=== PATIENT | female | born 1970 | race Caucasian/White ===

== ENCOUNTER 2017-09-05 15:37 | Emergency (ER) | payer MEDICAID ==
[~2017-09-05] VITALS: Ht 175.3 cm; Wt 114.0 kg
[~2017-09-05 15:37] MED LIST: ALBU18HF2 INH; FLUT16SP16; IBUP-1986 PO; INSU100V9; LEVO112T5; LISI10TA4; LORA10TA7; LURA40TA3; METF10002; SIMV40TA4
[2017-09-05 15:40] VITALS: BP 131/83
[2017-09-05] MEDS ORDERED: CEPH500C5 PO (15:54)
[2017-09-05] MEDS ORDERED: SULF1TAB49 PO (15:54)
[2017-09-05] MEDS ORDERED: HYDR-565 PO (15:54)
== END 2017-09-05 16:13 | disposition home or self-care (01) ==
LOC: ER 15:38
DX: L03.115 Cellulitis of right lower limb (principal); E11.9 Type 2 diabetes mellitus without complications; J45.909 Unspecified asthma, uncomplicated; I10 Essential (primary) hypertension; Z88.5 Allergy status to narcotic agent; Z79.4 Long term (current) use of insulin; Z86.19 Personal history of other infectious and parasitic diseases
CPT/HCPCS: 99283

== ENCOUNTER 2017-09-08 09:56 | Inpatient (IN) | payer MEDICAID ==
[~2017-09-08] VITALS: Ht 175.3 cm; Wt 111.9 kg
[~2017-09-08 09:56] MED LIST changes: +CEPH500C5 PO; +HYDR-565 PO; +SULF1TAB49 PO
[2017-09-08] MEDS ORDERED: normal saline 1000ML IV soln IV ONE (10:40)
[2017-09-08 11:55] LABS: BASOPHILS % (AUTO) 0.2 % (0-1); EOSINOPHILS # (AUTO) 0.1 X10'3 (0-0.9); EOSINOPHILS % (AUTO) 2.1 % (0-6); HEMATOCRIT 39.3 % (35.0-45.0); HEMOGLOBIN 13.6 g/dl (12.0-16.0); LYMPHOCYTES # (AUTO) 1.3 X10'3 (1.1-4.8); LYMPHOCYTES % (AUTO) 19.8 % (21-51); MEAN CORPUSCULAR HEMOGLOBIN 29.6 PG (27.0-31.0); MEAN CORPUSCULAR HGB CONC 34.7 % (33.0-36.5); MEAN CORPUSCULAR VOLUME 85.2 FL (78-98); MEAN PLATELET VOLUME 7.5 FL (7.4-10.4); MONOCYTES # (AUTO) 0.3 X10'3 (0-0.9); MONOCYTES % (AUTO) 5.2 % (2-12); NEUTROPHILS # (AUTO) 4.9 X10'3 (1.8-7.7); NEUTROPHILS % (AUTO) 72.7 % (42-75); PLATELET COUNT 156 X10'3 (140-440); RED BLOOD COUNT 4.61 X10'6 (4.20-5.60); RED CELL DISTRIBUTION WIDTH 15.4 % (11.5-14.5); WHITE BLOOD COUNT 6.8 X10'3 (4.5-11.0)
[2017-09-08 12:00] LABS: URINE HCG NEGATIVE (NEG)
[2017-09-08 12:05] LABS: INR 0.9 INR; PARTIAL THROMBOPLASTIN TIME 26 SECONDS (22-32); PROTHROMBIN TIME 9.5 SECONDS (9.0-12.0)
[2017-09-08] MEDS ORDERED: CefTRIAXone 2gm/NS 100ml IVPB 100 ML IV ONE (12:10)
[2017-09-08 12:11] LABS: ALANINE AMINOTRANSFERASE 25 U/L (12-78); ALBUMIN 4.1 G/DL (3.4-5.0); ALKALINE PHOSPHATASE 70 IU/L (46-116); ANION GAP 11 (8-16); ASPARTATE AMINO TRANSFERASE 11 U/L (10-37); BILIRUBIN,TOTAL 0.2 MG/DL (0.1-1.0); BLOOD UREA NITROGEN 12 MG/DL (7-18); CALCIUM 9.6 MG/DL (8.5-10.1); CHLORIDE 100 MMOL/L (99-107); GLUCOSE 146 MG/DL (70-104); POTASSIUM 4.2 MMOL/L (3.5-5.1); SODIUM 139 MMOL/L (135-145); TOTAL PROTEIN 8.3 G/DL (6.4-8.2); eGFR 78 ML/MIN
[2017-09-08 12:14] LABS: URINE AMPHETAMINE SCREEN NEGATIVE (Neg); URINE BARBITUATE SCREEN NEGATIVE (Neg); URINE BENZODIAZEPINES SCREEN NEGATIVE (Neg); URINE CANNABINOID SCREEN NEGATIVE (Neg); URINE COCAINE SCREEN NEGATIVE (Neg); URINE METHADONE SCREEN NEGATIVE (Neg); URINE OPIATE SCREEN POSITIVE (Neg); URINE PHENCYCLIDINE SCREEN NEGATIVE (Neg)
[2017-09-08] MEDS ORDERED: normal saline 1000ML IV soln IVB ONE (12:20)
[2017-09-08] MEDS ORDERED: HYDROcodone/acetaminophen 10/325mg tab PO ONE (12:50)
[2017-09-08] MEDS ORDERED: LISI10TA4 PO (13:02)
[2017-09-08] MEDS ORDERED: ERGO400C PO (13:02)
[2017-09-08] MEDS ORDERED: LORA-660 PO (13:02)
[2017-09-08] MEDS ORDERED: LEVO112T5 PO (13:02)
[2017-09-08] MEDS ORDERED: SIMV40TA4 PO (13:02)
[2017-09-08] MEDS ORDERED: GABA-532 PO (13:02)
[2017-09-08] MEDS ORDERED: METF500T PO (13:02)
[2017-09-08] MEDS ORDERED: LURA80TA3 PO (13:03)
[2017-09-08] MEDS ORDERED: TRAZ-146 PO (13:03)
[2017-09-08] MEDS ORDERED: dextrose 50%-water 50ml dispensing syringe IV PRN ×2 (13:50)
[2017-09-08] MEDS ORDERED: ondansetron/PF 4mg/2ml inj IV PRN (13:50)
[2017-09-08] MEDS ORDERED: potassium Cl 20 mEq SR tablet PO PRN ×2 (13:50)
[2017-09-08] MEDS ORDERED: MESSAGE TO PHARMACY PO ONE (13:50)
[2017-09-08] MEDS ORDERED: magnesium 4gm in 100ml NS 100 ML IV PRN (13:50)
[2017-09-08] MEDS ORDERED: glucagon, human recombinant 1mg kit SUBCUT PRN (13:50)
[2017-09-08] MEDS ORDERED: diphenhydrAMINE 50 mg/ml inj IV PRN (13:50)
[2017-09-08] MEDS ORDERED: magnesium Cl slow-release 64mg tablet PO PRN (13:50)
[2017-09-08] MEDS ORDERED: HYDROcodone/acetaminophen 5mg/325mg tablet PO PRN (13:50)
[2017-09-08] MEDS ORDERED: magnesium hydroxide 30ml (MOM) UD suspension PO PRN (13:50)
[2017-09-08] MEDS ORDERED: dextrose ORAL solution 15 GM/59 ML bottle PO PRN ×2 (13:50)
[2017-09-08] MEDS: K and/or MAG REPLACEMENT MC SCH (13:50)
[2017-09-08] MEDS ORDERED: insulin Lispro (HumaLOG) vial - multi-dose SQ SCH (13:50)
[2017-09-08] MEDS ORDERED: morphine 2 MG/ML inj. syringe IV PRN ×2 (13:50)
[2017-09-08] MEDS ORDERED: mag hydrox/Alum hydrox/simeth 30ml oral suspension PO PRN (13:50)
[2017-09-08] MEDS ORDERED: potassium Cl 40MEQ/NS 500ml 500 ML IV PRN ×2 (13:50)
[2017-09-08] MEDS ORDERED: acetaminophen 325mg tablet PO PRN ×2 (13:50)
[2017-09-08] MEDS ORDERED: magnesium 2GM in 50ml NS 50 ML IV PRN (13:50)
[2017-09-08 14:03] LABS: CLARITY,URINE CLEAR (Clear); COLOR,URINE YELLOW (Yellow); GLUCOSE, URINE NEGATIVE (Neg); KETONES,URINE NEGATIVE (Neg); LEUKOCYTE ESTERASE ,URINE NEGATIVE (Neg); NITRITES, URINE NEGATIVE (Neg); OCCULT BLOOD,URINE NEGATIVE (Neg); PROTEIN,URINE NEGATIVE (Neg); UROBILINOGEN,URINE 0.2 E.U/dL (0.2-1.0)
[2017-09-08 14:21] LABS: HEMOGLOBIN A1C 5.4 % (4.5-6.2)
[2017-09-08 14:22] LABS: UA COLLECTION TYPE CLN CATCH MIDSTREAM
[2017-09-08 14:59] VITALS: BP 117/69
[2017-09-08] MEDS: nicotine 21mg patch - 24 hr TD SCH (15:10)
[2017-09-08] MEDS: normal saline 1000ml 1,000 ML IV SCH (15:41)
[2017-09-08] MEDS: piperacillin/tazo 3.375gm/50ml 50 ML IV SCH ×2 (15:55→20:43)
[2017-09-08] MEDS: HYDROcodone/acetaminophen 10/325mg tab PO PRN (17:59)
[2017-09-08 20:00] VITALS: BP 119/62
[2017-09-08] MEDS: gabapentin 300mg capsule PO SCH (20:43)
[2017-09-08] MEDS ORDERED: insulin glargine (Lantus) pen - multi-dose SQ SCH (21:00)
[2017-09-08] MEDS ORDERED: traZODone 50mg tablet PO SCH (21:00)
[2017-09-08] MEDS ORDERED: lurasidone 20mg tablet PO SCH (21:00)
[2017-09-08] MEDS ORDERED: lurasidone 60mg tablet PO SCH (21:00)
[2017-09-09] VITALS: BP 96/59
[2017-09-09] MEDS: piperacillin/tazo 3.375gm/50ml 50 ML IV SCH ×3 (02:02→14:00)
[2017-09-09] MEDS: normal saline 1000ml 1,000 ML IV SCH ×2 (02:02→09:47)
[2017-09-09] MEDS: HYDROcodone/acetaminophen 10/325mg tab PO PRN ×3 (04:18→13:09)
[2017-09-09 05:47] LABS: BASOPHILS % (AUTO) 0.4 % (0-1); EOSINOPHILS # (AUTO) 0.1 X10'3 (0-0.9); EOSINOPHILS % (AUTO) 2.1 % (0-6); HEMOGLOBIN 12.1 g/dl (12.0-16.0); LYMPHOCYTES # (AUTO) 1.5 X10'3 (1.1-4.8); MEAN CORPUSCULAR HEMOGLOBIN 29.4 PG (27.0-31.0); MEAN CORPUSCULAR HGB CONC 34.6 % (33.0-36.5); MEAN CORPUSCULAR VOLUME 85.1 FL (78-98); MEAN PLATELET VOLUME 7.3 FL (7.4-10.4); MONOCYTES # (AUTO) 0.5 X10'3 (0-0.9); MONOCYTES % (AUTO) 9.3 % (2-12); NEUTROPHILS % (AUTO) 58.2 % (42-75); PLATELET COUNT 119 X10'3 (140-440); RED BLOOD COUNT 4.12 X10'6 (4.20-5.60); RED CELL DISTRIBUTION WIDTH 15.3 % (11.5-14.5); WHITE BLOOD COUNT 5.1 X10'3 (4.5-11.0)
[2017-09-09 06:22] LABS: ALANINE AMINOTRANSFERASE 25 U/L (12-78); ALBUMIN/GLOBULIN RATIO 0.9 (1.1-1.5); ALKALINE PHOSPHATASE 49 IU/L (46-116); ANION GAP 7 (8-16); ASPARTATE AMINO TRANSFERASE 16 U/L (10-37); BILIRUBIN,TOTAL 0.2 MG/DL (0.1-1.0); BLOOD UREA NITROGEN 11 MG/DL (7-18); BUN/CREATININE RATIO 15.7 (6.6-38.0); CALCIUM 8.3 MG/DL (8.5-10.1); CHLORIDE 109 MMOL/L (99-107); GLUCOSE 110 MG/DL (70-104); MAGNESIUM 1.7 MG/DL (1.5-2.4); POTASSIUM 4.1 MMOL/L (3.5-5.1); SODIUM 142 MMOL/L (135-145); TOTAL CARBON DIOXIDE 25.8 MMOL/L (24-32); TOTAL PROTEIN 6.4 G/DL (6.4-8.2); eGFR 90 ML/MIN
[2017-09-09 07:16] VITALS: BP 102/57
[2017-09-09] MEDS: gabapentin 300mg capsule PO SCH ×2 (07:46→13:05)
[2017-09-09] MEDS: nicotine 21mg patch - 24 hr TD SCH (07:47)
[2017-09-09] MEDS ORDERED: enoxaparin 40mg/0.4ml syringe SUBCUT SCH (08:00)
[2017-09-09] MEDS ORDERED: levoTHYROXINE 112mcg tablet PO SCH (08:00)
[2017-09-09] MEDS ORDERED: lisinopril 10 MG tablet PO SCH (08:00)
[2017-09-09] MEDS ORDERED: cholecalciferol (vitamin D) 400 unit tablet PO SCH (08:00)
[2017-09-09] MEDS ORDERED: atorvastatin 20mg tablet PO SCH (08:00)
[2017-09-09] MEDS ORDERED: loratadine 10mg tablet PO SCH (08:00)
[2017-09-09] MEDS: K and/or MAG REPLACEMENT MC SCH (08:00)
[2017-09-09 11:57] VITALS: BP 105/56
[2017-09-09] MEDS ORDERED: VANCOMYCIN LEVEL IV ONE (12:30)
[2017-09-09] MEDS ORDERED: SULF1TAB49 PO (14:08)
[2017-09-09] MEDS ORDERED: lactobacillus rhamnosus 10,000 MMU CELLS/CAPSULE PO SCH (17:30)
[2017-09-10] MEDS ORDERED: VANCOMYCIN LEVEL IV ONE (12:30)
== END 2017-09-09 16:04 | disposition home or self-care (01) | DRG 383 ==
LOC: ER 09:56 → ED HOLD 13:47 → MED 3N 14:51
PROVIDERS: ADMIT Family Medicine; ATTEND Family Medicine
DX: L03.115 Cellulitis of right lower limb (principal); E87.2 Acidosis; E03.9 Hypothyroidism, unspecified; E11.9 Type 2 diabetes mellitus without complications; E66.9 Obesity, unspecified; E78.5 Hyperlipidemia, unspecified; I10 Essential (primary) hypertension; L03.116 Cellulitis of left lower limb; F17.200 Nicotine dependence, unspecified, uncomplicated; B19.20 Unspecified viral hepatitis C without hepatic coma; F31.9 Bipolar disorder, unspecified; F15.90 Other stimulant use, unspecified, uncomplicated; M79.89 Other specified soft tissue disorders; R60.0 Localized edema; Z68.36 Body mass index [BMI] 36.0-36.9, adult; Z88.5 Allergy status to narcotic agent; Z90.49 Acquired absence of other specified parts of digestive tract
CPT/HCPCS: 36415; 73590; 80053; 80202; 80305; 81003; 81025; 82948; 83036; 83605; 83735; 84100; 84443; 85025; 85610; 85730; 87040; 87070; 93005; 93971; 96365; 96368; 99285; J0696; J1650; J1815; J2543; J3370; J7030

== ENCOUNTER 2019-09-16 08:56 | Emergency (ER) | payer MEDICAID ==
[~2019-09-16] VITALS: Ht 175.3 cm; Wt 110.0 kg
[~2019-09-16 08:56] MED LIST changes: -ALBU18HF2 INH; -CEPH500C5 PO; +ERGO400C PO; -FLUT16SP16; +GABA-532 PO; +HYDR-4383 PO; -HYDR-565 PO; -IBUP-1986 PO; -INSU100V9; -LEVO112T5; +LEVO112T5 PO; -LISI10TA4; +LISI10TA4 PO; +LORA-660 PO; -LORA10TA7; -LURA40TA3; +LURA80TA3 PO; -METF10002; +METF500T PO; +SIMV-45 PO; -SIMV40TA4; -SULF1TAB49 PO; +TRAZ-256 PO
[2019-09-16] MEDS ORDERED: METH-360 PO (09:57)
[2019-09-16] MEDS ORDERED: NAPR-56 PO (09:57)
[2019-09-16] MEDS: orphenadrine citrate 60mg/2ml inj. IM ONE ×2 (10:19→10:28)
[2019-09-16] MEDS: ketorolac tromethamine 15mg/ml inj. IM ONE ×2 (10:19→10:28)
[2019-09-16] MEDS ORDERED: orphenadrine citrate 60mg/2ml inj. IM ONE (10:30)
[2019-09-16] MEDS ORDERED: ketorolac tromethamine 15mg/ml inj. IM ONE (10:30)
[2019-09-16 10:34] VITALS: BP 156/78
== END 2019-09-16 11:31 | disposition home or self-care (01) ==
LOC: ER 08:57
DX: M54.41 Lumbago with sciatica, right side (principal); I10 Essential (primary) hypertension; J45.909 Unspecified asthma, uncomplicated; E11.9 Type 2 diabetes mellitus without complications; F15.90 Other stimulant use, unspecified, uncomplicated; Z86.19 Personal history of other infectious and parasitic diseases; Z90.49 Acquired absence of other specified parts of digestive tract; Z98.890 Other specified postprocedural states; Z88.5 Allergy status to narcotic agent; Z88.6 Allergy status to analgesic agent; Z79.84 Long term (current) use of oral hypoglycemic drugs; Z79.899 Other long term (current) drug therapy
CPT/HCPCS: 96372; 99283; J1885; J2360

== ENCOUNTER 2019-10-19 23:02 | Emergency (ER) | payer MEDICAID ==
[~2019-10-19] VITALS: Ht 167.6 cm; Wt 115.5 kg
[~2019-10-19 23:02] MED LIST changes: +METH-360 PO
[2019-10-19 23:05] VITALS: BP 143/80
[2019-10-20] MEDS ORDERED: AZIT-63 PO (00:06)
[2019-10-20] MEDS ORDERED: azithromycin 250mg tablet PO ONE (00:10)
--- NOTE | 2019-10-20 00:18 | NUR ---
PT EN ROUTE FOR CXR.
[2019-10-20] MEDS ORDERED: ALBU8.5H8 INH (00:19)
== END 2019-10-20 00:39 | disposition home or self-care (01) ==
LOC: ER 23:03
DX: J20.9 Acute bronchitis, unspecified (principal); I10 Essential (primary) hypertension; J45.909 Unspecified asthma, uncomplicated; E11.9 Type 2 diabetes mellitus without complications; F15.90 Other stimulant use, unspecified, uncomplicated; F17.200 Nicotine dependence, unspecified, uncomplicated; Z86.19 Personal history of other infectious and parasitic diseases; Z90.49 Acquired absence of other specified parts of digestive tract; Z98.890 Other specified postprocedural states; Z88.5 Allergy status to narcotic agent; Z79.2 Long term (current) use of antibiotics; Z79.899 Other long term (current) drug therapy
CPT/HCPCS: 71045; 99283

== ENCOUNTER 2019-10-22 19:56 | Emergency (ER) | payer MEDICAID ==
[~2019-10-22] VITALS: Ht 176.5 cm; Wt 114.5 kg
[~2019-10-22 19:56] MED LIST changes: +ALBU8.5H8 INH; +AZIT-63 PO
[2019-10-22 20:16] VITALS: BP 104/62
[2019-10-22] MEDS ORDERED: naphazoline/pheniramine eye 1 DROP BOTTLE EACHEYE PRN (21:40)
[2019-10-22] MEDS ORDERED: ciprofloxacin 0.3% 2.5ml ophthalmic solution EACHEYE SCH (21:40)
== END 2019-10-22 22:21 | disposition home or self-care (01) ==
LOC: ER 19:56
DX: H10.9 Unspecified conjunctivitis (principal); R05 Cough; I10 Essential (primary) hypertension; J45.909 Unspecified asthma, uncomplicated; E11.9 Type 2 diabetes mellitus without complications; F17.210 Nicotine dependence, cigarettes, uncomplicated; F15.90 Other stimulant use, unspecified, uncomplicated; Z86.19 Personal history of other infectious and parasitic diseases; Z88.5 Allergy status to narcotic agent; Z88.6 Allergy status to analgesic agent; Z79.84 Long term (current) use of oral hypoglycemic drugs; Z79.899 Other long term (current) drug therapy
CPT/HCPCS: 99283

== ENCOUNTER 2020-05-05 22:23 | Emergency (ER) | payer MEDICAID ==
[~2020-05-05] VITALS: Ht 177.8 cm; Wt 116.0 kg
[~2020-05-05 22:23] MED LIST changes: -AZIT-63 PO
[2020-05-05 22:29] VITALS: BP 138/66
[2020-05-05] MEDS ORDERED: LIDOcaine 1% W/epiNEPHrine 1:200,000 10ml vial IJ ONE (23:15)
[2020-05-06] MEDS ORDERED: SULF1TAB49 PO (00:18)
[2020-05-06] MEDS ORDERED: CEPH500C5 PO (00:18)
[2020-05-06] MEDS ORDERED: sulfamethoxazole/trimethoprim DS (800/160mg) tablet PO ONE (00:20)
[2020-05-06] MEDS ORDERED: cephalexin 250mg capsule PO ONE (00:20)
== END 2020-05-06 00:31 | disposition home or self-care (01) ==
LOC: ER 22:24
DX: L02.512 Cutaneous abscess of left hand (principal); M79.632 Pain in left forearm; M79.89 Other specified soft tissue disorders; I10 Essential (primary) hypertension; J45.909 Unspecified asthma, uncomplicated; E11.9 Type 2 diabetes mellitus without complications; F15.90 Other stimulant use, unspecified, uncomplicated; Z86.19 Personal history of other infectious and parasitic diseases; Z87.440 Personal history of urinary (tract) infections; Z90.89 Acquired absence of other organs; Z98.890 Other specified postprocedural states; Z88.5 Allergy status to narcotic agent; Z88.6 Allergy status to analgesic agent; Z79.899 Other long term (current) drug therapy
CPT/HCPCS: 10060; 99283

== ENCOUNTER 2020-06-15 16:25 | Emergency (ER) | payer MEDICAID ==
[~2020-06-15] VITALS: Ht 175.3 cm; Wt 115.3 kg
[2020-06-15] MEDS ORDERED: sulfamethoxazole/trimethoprim DS (800/160mg) tablet PO ONE (17:40)
[2020-06-15] MEDS ORDERED: cephalexin 250mg capsule PO ONE (17:40)
--- NOTE | 2020-06-15 18:27 | NUR ---
Patient with SEUN Pedro who is doing an ultrasound of her arm.
[2020-06-15] MEDS ORDERED: bacitracin 15gm ointment TP ONE (18:35)
[2020-06-15] MEDS ORDERED: CEPH500C5 PO (18:43)
[2020-06-15] MEDS ORDERED: SULF1TAB49 PO (18:43)
[2020-06-15 19:07] VITALS: BP 125/81
== END 2020-06-15 19:31 | disposition home or self-care (01) ==
LOC: ER 16:25
DX: L02.414 Cutaneous abscess of left upper limb (principal); L02.413 Cutaneous abscess of right upper limb; L03.114 Cellulitis of left upper limb; L03.113 Cellulitis of right upper limb; M79.602 Pain in left arm; M79.601 Pain in right arm; I10 Essential (primary) hypertension; J45.909 Unspecified asthma, uncomplicated; E11.9 Type 2 diabetes mellitus without complications; F15.90 Other stimulant use, unspecified, uncomplicated; Z86.19 Personal history of other infectious and parasitic diseases; Z87.440 Personal history of urinary (tract) infections; Z90.89 Acquired absence of other organs; Z98.890 Other specified postprocedural states; Z88.5 Allergy status to narcotic agent; Z88.6 Allergy status to analgesic agent; Z79.2 Long term (current) use of antibiotics; Z79.899 Other long term (current) drug therapy
CPT/HCPCS: 76882; 99284

== ENCOUNTER → 2020-06-19 | Emergency (ER) | payer MEDICAID ==
[~2020-06-19] VITALS: Ht 175.3 cm; Wt 113.6 kg
[~2020-06-19] MED LIST changes: +CEPH500C5 PO; +LIDOcaine 1% W/epiNEPHrine 1:100,000 20ml vial ONE; +LIDOcaine 1% W/epiNEPHrine 1:200,000 10ml vial IJ ONE; +LIDOcaine 1% w/epiNEPHrine 1:200,000 30ml vial IJ ONE; +SULF1TAB49 PO; +TETanus/Pertussis (Acell)/Diphther VAC/PF (Tdap-Adult) 0.5ml syringe IMVAC ONE
[2020-06-19 11:07] VITALS: BP 136/79
== END | disposition home or self-care (01) ==
LOC: ER 11:03
DX: L02.413 Cutaneous abscess of right upper limb (principal); I10 Essential (primary) hypertension; J45.909 Unspecified asthma, uncomplicated; E11.9 Type 2 diabetes mellitus without complications; F17.200 Nicotine dependence, unspecified, uncomplicated; F15.90 Other stimulant use, unspecified, uncomplicated; Z86.19 Personal history of other infectious and parasitic diseases; Z87.440 Personal history of urinary (tract) infections; Z98.890 Other specified postprocedural states; Z90.89 Acquired absence of other organs; Z88.5 Allergy status to narcotic agent; Z88.6 Allergy status to analgesic agent; Z79.2 Long term (current) use of antibiotics; Z79.899 Other long term (current) drug therapy
CPT/HCPCS: 10060; 10061; 90471; 90715; 99284

== ENCOUNTER 2020-11-20 17:23 | Emergency (ER) | payer MEDICAID ==
[~2020-11-20] VITALS: Ht 175.3 cm; Wt 113.6 kg
[~2020-11-20 17:23] MED LIST changes: -CEPH500C5 PO; -LIDOcaine 1% W/epiNEPHrine 1:100,000 20ml vial ONE; -LIDOcaine 1% W/epiNEPHrine 1:200,000 10ml vial IJ ONE; -LIDOcaine 1% w/epiNEPHrine 1:200,000 30ml vial IJ ONE; +LISI10TA27 PO; -LISI10TA4 PO; +LORA-657 PO; -LORA-660 PO; -SULF1TAB49 PO; -TETanus/Pertussis (Acell)/Diphther VAC/PF (Tdap-Adult) 0.5ml syringe IMVAC ONE
[2020-11-20 17:33] VITALS: BP 116/83
[2020-11-20] MEDS ORDERED: SULF1TAB49 PO (20:54)
[2020-11-20] MEDS ORDERED: POLOS EACHEYE (20:54)
[2020-11-20] MEDS ORDERED: CEFD300C3 PO (20:54)
== END 2020-11-20 21:10 | disposition home or self-care (01) ==
LOC: ER 17:24
DX: H00.034 Abscess of left upper eyelid (principal); I10 Essential (primary) hypertension; J45.909 Unspecified asthma, uncomplicated; E11.9 Type 2 diabetes mellitus without complications; F15.90 Other stimulant use, unspecified, uncomplicated; Z86.19 Personal history of other infectious and parasitic diseases; Z90.49 Acquired absence of other specified parts of digestive tract; Z98.890 Other specified postprocedural states; Z88.5 Allergy status to narcotic agent; Z88.6 Allergy status to analgesic agent; Z79.899 Other long term (current) drug therapy; Z79.84 Long term (current) use of oral hypoglycemic drugs
CPT/HCPCS: 99283

== ENCOUNTER 2022-04-15 15:56 | Emergency (ER) | payer MEDICAID ==
[~2022-04-15] VITALS: Ht 175.3 cm; Wt 95.7 kg
[~2022-04-15 15:56] MED LIST changes: +ALBU8.5H17 INH; -ALBU8.5H8 INH; +LURA80TA2 PO; -LURA80TA3 PO
[2022-04-15 16:39] VITALS: BP 129/80
[2022-04-15] MEDS ORDERED: HYDR-3965 PO (19:35)
[2022-04-15] MEDS ORDERED: HYDROcodone/acetaminophen 5mg/325mg tablet PO ONE (19:40)
== END 2022-04-15 19:55 | disposition home or self-care (01) ==
LOC: ER 15:57
DX: S83.92XA Sprain of unspecified site of left knee, initial encounter (principal); M25.562 Pain in left knee; I10 Essential (primary) hypertension; J45.909 Unspecified asthma, uncomplicated; E11.9 Type 2 diabetes mellitus without complications; F15.90 Other stimulant use, unspecified, uncomplicated; Z86.19 Personal history of other infectious and parasitic diseases; Z87.440 Personal history of urinary (tract) infections; Z90.89 Acquired absence of other organs; Z98.890 Other specified postprocedural states; Z88.5 Allergy status to narcotic agent; Z88.6 Allergy status to analgesic agent; Z79.899 Other long term (current) drug therapy; W50.2XXA Accidental twist by another person, initial encounter; Y93.89 Activity, other specified; Y92.89 Other specified places as the place of occurrence of the external cause; Y99.8 Other external cause status
CPT/HCPCS: 73564; 99284; A6449

== ENCOUNTER 2022-07-13 20:32 | Emergency (ER) | payer MEDICAID ==
[~2022-07-13] VITALS: Ht 175.3 cm; Wt 110.5 kg
== END 2022-07-14 05:11 | disposition left against medical advice (07) ==
LOC: ER 20:33
DX: M25.521 Pain in right elbow (principal); Z53.21 Procedure and treatment not carried out due to patient leaving prior to being seen by health care provider
CPT/HCPCS: 73080

== ENCOUNTER 2024-03-08 22:20 | Emergency (ER) | payer MEDICAID ==
[~2024-03-08] VITALS: Ht 175.3 cm; Wt 122.7 kg
[2024-03-08 22:21] VITALS: BP 141/81; PULSE 93; RESP 18; TEMP 98.4; O2SAT 97
[2024-03-08 23:03] LABS: BASOPHILS # (AUTO) 0.1 X10'3 (0-0.2); BASOPHILS % (AUTO) 1.1 % (0-1); EOSINOPHILS # (AUTO) 0.1 X10'3 (0-0.9); EOSINOPHILS % (AUTO) 1.4 % (0-6); HEMATOCRIT 40.5 % (35.0-45.0); HEMOGLOBIN 13.6 g/dl (12.0-16.0); LYMPHOCYTES # (AUTO) 2.3 X10'3 (1.1-4.8); LYMPHOCYTES % (AUTO) 25.6 % (21-51); MEAN CORPUSCULAR HEMOGLOBIN 28.3 PG (27.0-31.0); MEAN CORPUSCULAR HGB CONC 33.5 g/dL (33.0-36.5); MEAN CORPUSCULAR VOLUME 84.4 FL (78-98); MEAN PLATELET VOLUME 7.7 FL (7.4-10.4); MONOCYTES # (AUTO) 0.3 X10'3 (0-0.9); MONOCYTES % (AUTO) 3.4 % (2-12); NEUTROPHILS # (AUTO) 6.1 X10'3 (1.8-7.7); NEUTROPHILS % (AUTO) 68.5 % (42-75); PLATELET COUNT 151 X10'3 (140-440); RED CELL DISTRIBUTION WIDTH 14.9 % (11.5-14.5); WHITE BLOOD COUNT 8.9 X10'3 (4.5-11.0)
[2024-03-08 23:16] LABS: ALANINE AMINOTRANSFERASE 56 U/L (12-78); ALBUMIN 3.8 G/DL (3.4-5.0); ALKALINE PHOSPHATASE 87 IU/L (46-116); ANION GAP 5 (8-16); ASPARTATE AMINO TRANSFERASE 22 U/L (10-37); BILIRUBIN,TOTAL 0.4 MG/DL (0.1-1.0); BLOOD UREA NITROGEN 14 MG/DL (7-18); BUN/CREATININE RATIO 18.9 (10.0-20.0); CALCIUM 9.1 MG/DL (8.5-10.1); CHLORIDE 100 MMOL/L (99-107); CREATININE 0.74 MG/DL (0.40-0.90); GLUCOSE 113 MG/DL (70-104); LIPASE 28 U/L (16-77); POTASSIUM 3.8 MMOL/L (3.5-5.1); SODIUM 135 MMOL/L (135-145); TOTAL CARBON DIOXIDE 30.3 MMOL/L (24-32); TOTAL PROTEIN 7.5 G/DL (6.4-8.2); eCRCL 93 ML/MIN; eGFR 82 ML/MIN
== END 2024-03-09 01:49 | disposition left against medical advice (07) ==
LOC: ER 22:20
DX: R30.0 Dysuria (principal); Z53.21 Procedure and treatment not carried out due to patient leaving prior to being seen by health care provider
CPT/HCPCS: 36415; 80053; 83690; 85025

== ENCOUNTER 2024-07-19 16:17 | Emergency (ER) | payer MEDICAID ==
[~2024-07-19] VITALS: Ht 175.3 cm; Wt 106.3 kg
[2024-07-19 16:19] VITALS: BP 134/78; PULSE 94; RESP 16; TEMP 98; O2SAT 96
[2024-07-19] MEDS ORDERED: LIDO700A32 TD (18:58)
[2024-07-19] MEDS ORDERED: BACL10TA2 PO (18:58)
[2024-07-19] MEDS ORDERED: IBUP-1984 PO (18:59)
[2024-07-19] MEDS: LIDOcaine 5% patch TP ONE (19:10)
== END 2024-07-19 19:20 | disposition home or self-care (01) ==
LOC: ER 16:17
DX: S90.32XA Contusion of left foot, initial encounter (principal); M43.6 Torticollis; I10 Essential (primary) hypertension; J45.909 Unspecified asthma, uncomplicated; E11.9 Type 2 diabetes mellitus without complications; E07.9 Disorder of thyroid, unspecified; F15.90 Other stimulant use, unspecified, uncomplicated; Z90.49 Acquired absence of other specified parts of digestive tract; Z88.5 Allergy status to narcotic agent; Z88.8 Allergy status to other drugs, medicaments and biological substances; Z79.1 Long term (current) use of non-steroidal anti-inflammatories (NSAID); Z79.84 Long term (current) use of oral hypoglycemic drugs; Z79.899 Other long term (current) drug therapy; Z98.890 Other specified postprocedural states; W17.89XA Other fall from one level to another, initial encounter; Y93.89 Activity, other specified; Y92.89 Other specified places as the place of occurrence of the external cause; Y99.8 Other external cause status
CPT/HCPCS: 72040; 73610; 99284; L4360